=== PATIENT | female | born 1980 | race African-American/Black ===

== ENCOUNTER 2022-07-15 03:02 | Observation (INO) | payer OTHER, SELFPAY ==
--- NOTE | 2022-07-15 02:52 | PC.NURSE ---
called MD Deng to inform pt's meds at put in computer
[2022-07-15 02:53] VITALS: BMI 23.1
[2022-07-15 02:54] VITALS: BP 146/77; PULSE 52; RESP 16; TEMP 36.6; O2SAT 96
--- NOTE | 2022-07-15 02:58 | PM.IMHP ---
H&P: HPI History of Present Illness Date/Time: 07/15/22 02:58 Chief Complaint: abdominal pain Narrative: This is a 42-year-old female with past medical history significant for COPD/ emphysema, hypertension, tobacco dependence. patient comes as a transfer from another hospital due to abdominal pain for the last 3 days or so. Preliminary workup was significant for CT of abdomen and pelvis with cholecystitis. Patient denies any fevers, rigors, chills, has had nausea and vomiting. Pain is localized to the epigastric area and right upper quadrant Patient is been admitted for further evaluation management and treatment. Review of Systems Review of Systems: abdominal pain, nausea, vomiting, constipation. Constitutional: Constitutional: Denies chills, Denies fever(s), Denies malaise, Denies night sweats and Denies weakness Eyes: Eyes: Denies change in vision ENT: Denies dysphagia, Denies vertigo, Denies dizziness and Denies odynophagia Cardiovascular: Cardiovascular: Denies chest pain, Denies syncope, Denies irregular heart rhythm, Denies lightheadedness and Denies palpitations Respiratory: Respiratory: Denies chest congestion, Denies cough, Denies excessive phlegm production, Denies pain on inspiration, Denies dyspnea, Denies dyspnea on exertion and Denies wheezing Gastrointestinal: Gastrointestinal: Reports abdominal pain, Reports constipation, Reports nausea and Reports vomiting Genitourinary: Genitourinary: Denies dysuria Musculoskeletal: Musculoskeletal: Denies back pain, Denies joint swelling and Denies muscle weakness Integumentary/Breasts: Skin/Breast: Denies rash Neurologic: Denies vertigo, Denies dizziness, Denies focal weakness and Denies Sensory deficit (Neuro) Psychiatric: Psychiatric: Reports no additional psychiatric complaints and Reports as per HPI Endocrine: Endocrine: Denies cold intolerance, Denies flushing, Denies heat intolerance, Denies polyphagia, Denies polydipsia and Denies palpitations Hematologic/Lymphatic: Hematologic/Lymphatic: Reports no additional hematologic/lymphatic complaints and Reports as per HPI Allergic/Immunologic: Allergic/Immunologic: Reports no additional allergic/immunologic complaints and Reports as per HPI PMFSH Social History Social History Smoking status: Unknown if ever smoked Alcohol intake: current Drinks per week: 3 Substance use: never Spiritual care concerns: No Meds Home Medications and Allergies Home Medications Medication Instructions Recorded Confirmed Type acyclovir 800 mg tablet 800 mg PO DAILY 07/15/22 07/15/22 History albuterol sulfate 90 mcg/actuation 2 puff inhalation Q4H PRN 07/15/22 07/15/22 History aerosol inhaler Shortness Of Breath aspirin 81 mg chewable tablet 81 mg PO DAILY 07/15/22 07/15/22 History atorvastatin 40 mg tablet 40 mg PO DAILY 07/15/22 07/15/22 History budesonide-formoterol HFA 160 2 puff inhalation DAILY 07/15/22 07/15/22 History mcg-4.5 mcg/actuation aerosol inhaler (Symbicort) citalopram 40 mg tablet 40 mg PO DAILY 07/15/22 07/15/22 History lisinopril 20 mg tablet 20 mg PO DAILY 07/15/22 07/15/22 History metoprolol tartrate 50 mg tablet 50 mg PO DAILY 07/15/22 07/15/22 History nitroglycerin 0.4 mg sublingual 0.4 mg sublingual Q5-15M PRN Chest 07/15/22 07/15/22 History tablet Pain ticagrelor 90 mg tablet (Brilinta) 90 mg PO BID 07/15/22 07/15/22 History Allergies Allergy/AdvReac Type Severity Reaction Status Date / Time morphine Allergy Mild HIVES Verified 02/02/18 11:55 Vital Signs Vital Signs - 24 hr 07/15/22 02:54 Temperature 97.8 F Pulse Rate 52 L Respiratory Rate 16 Blood Pressure 146/77 H Pulse Oximetry 96 Exam Narrative: patient is laying in bed Const: General: comfortable, no acute distress, well developed, alert and awake Nutritional Appearance: average body habitus Orientation/consciousness: patient oriented x3 HENMT: Head: normal to inspection, normocephalic
[2022-07-15 03:05] VITALS: BMI 23.1
--- NOTE | 2022-07-15 03:06 | PC.NURSE ---
This patient, Rufina Cheung, was admitted to Medical Room 243-01. Patient/family oriented to hospital policies and general routines including ID bracelet, bed and alarms, visiting hours, pain management, procedures, bathroom and other care routines, personal items, smoking policy, room service/diet, and visiting hours. Information on how to activate the Rapid Response Team has been discussed. Patient/Family are encouraged to report perceived risks to care and to ask questions if they do not understand what they are told or what they should do. arrived at 247 am
--- NOTE | 2022-07-15 03:12 | PC.NURSE ---
pt transferred [facility], consult for cholecystitis MD Elliott, npo at this time.
[2022-07-15] MEDS: DEXTROSE 5%/0.45% SOD CHL 1,000 ML 100 ML IV CONT (03:19)
[2022-07-15 05:09] LABS: Basophils Absolute Auto 0.1 K/mm3 (0.0-0.1); Basophils Percent Auto 0.8 % (0.2-1.2); Eosinophils Absolute Auto 0.3 K/mm3 (0-0.3); Eosinophils Percent Auto 3.5 % (0-4.4); Hematocrit 28.1 % (37.0-47.0); Hemoglobin 7.7 g/dL (12.0-15.0); Immature Granulocyte Absolute 0.03 K/mm3 (0.00-0.031); Immature Granulocyte Percent A 0.4 % (0-0.5); Lymphocytes Absolute Auto 1.17 K/mm3 (0.9-3.2); Mean Corpuscular HGB Conc 27.4 g/dl (32-36); Mean Corpuscular Hemoglobin 20.1 pg (26-34); Mean Corpuscular Volume 73.2 fl (80-100); Monocytes Percent Auto 12.6 % (2.6-8.5); Neutrophils Absolute Auto 5.3 K/mm3 (1.3-6.7); Neutrophils Percent Auto 67.7 % (45.5-73.1); Nucleated Red Blood Cells Absolute Auto 0.1 K/mm3 (0.0-0.012); Nucleated Red Blood Cells Perc 1.2 % (0.0-0.2); Platelet Count Result 338 k/mm3 (150-375); Red Blood Count 3.84 M/mm3 (4.2-5.4); Red Cell Distribution Width 22.5 % (11.5-14.5); White Blood Count 7.8 K/mm3 (4.5-10.0)
[2022-07-15 05:15] LABS: Anion Gap 9 mmol/L (8-16); Blood Urea Nitrogen 20 mg/dL (7-17); Calcium 8.1 mg/dL (8.4-10.2); Carbon Dioxide 16 mmol/L (22-30); Chloride 111 mmol/L (98-107); Estimated CRCL calculation 56 ml/min; Estimated Glomerular Filt Rate > 60; Glucose 164 mg/dL (65-110); Potassium 4.1 mmol/L (3.4-5.0); Sodium 136 mmol/L (137-145)
[2022-07-15 05:35] LABS: Anisocytosis 1+ (NORMAL); Hypochromasia 2+ (NORMAL); Platelet Estimate Adequate (Adequate)
[2022-07-15 05:36] LABS: Ovalocytes 1+ (NORMAL)
--- NOTE | 2022-07-15 07:59 | PM.EVENT ---
Event Note Event Note Event Note: follow up rounding note pt w 08/15 pain, imaging found in chart from transferring hospital, no fever, no leukocytosis HIDA pending pt would like only IV Dilaudid for her pain
[2022-07-15 08:00] VITALS: BP 138/88; PULSE 56; RESP 16; TEMP 36.4; O2SAT 100
[2022-07-15] MEDS: FLUTICASONE/SALMETEROL 115-21 MCG INHALER 1 PUFF 2 PUFF INHALATION (08:23)
[2022-07-15] MEDS: MORPHINE SULFATE (*CRX) 2 MG/ML INJ IV PUSH (08:50)
[2022-07-15 08:54] LABS: Alanine Aminotransferase 36 U/L (6-35); Albumin Level 3.3 g/dL (3.5-5.1); Alkaline Phosphatase 68 U/L (38-126); Aspartate Amino Transferase 57 U/L (14-36); Bilirubin,Total 1.8 mg/dL (0.2-1.3); Lipase 283 U/L (23-300)
[2022-07-15] MEDS: diphenhydrAMINE HCl INJ 50 MG/ML VIAL IV PUSH (09:13)
--- NOTE | 2022-07-15 11:15 | PM.CNGS ---
Assessment and Plan Assessment and plan (1) Cholecystitis: Code(s): K81.9 - Cholecystitis, unspecified Status: Acute Assessment and Plan: exam benign, labs largely unremarkable, will start low fat diet, if shannon diet ok to dc home and f/u c me as outpt (2) Tobacco dependence: Code(s): F17.200 - Nicotine dependence, unspecified, uncomplicated Status: Acute Assessment and Plan: discussed cessation and pt not interested at this point (3) Hypertension: Code(s): I10 - Essential (primary) hypertension Status: Acute Assessment and Plan: stable, mgmt per primary team (4) COPD with emphysema: Code(s): J43.9 - Emphysema, unspecified Status: Acute Assessment and Plan: stable, mgmt per primary team History of Present Illness Consult details Consult date: 07/15/22 Reason for consult: abdominal pain Requesting physician: Feroz Deng MD Narrative: The patient is a 42-year-old female with a history of COPD presenting as a transfer from outside hospital with cholecystitis. The patient reports over the last few days she has had progressively worsening epigastric, right upper quadrant abdominal pain. The patient reports associated poor appetite, nausea, bloating. The patient reports similar symptoms in the past and reports a history of alcoholic pancreatitis. Workup, including CT, is reportedly significant for cholecystitis. The patient reports that she feels much better this morning. She reports all her symptoms are resolved and she would like to eat. Review of Systems Constitutional: Constitutional: Reports as per HPI, Reports anorexia, Denies chills, Denies fatigue, Denies fever(s), Denies increased appetite, Denies malaise, Reports poor appetite, Denies weakness, Denies weight gain and Denies weight loss Eyes: Eyes: Reports no additional eye complaints ENT: Reports system reviewed and no additional complaints, except as documented Cardiovascular: Cardiovascular: Reports no additional cardiovascular complaints Respiratory: Respiratory: Reports no additional respiratory complaints Gastrointestinal: Gastrointestinal: Reports as per HPI, Reports abdominal pain, Reports bloating, Reports GI cramping, Reports early satiety, Reports nausea and Denies vomiting Genitourinary: Genitourinary: Reports no additional female genitourinary complaints Musculoskeletal: Musculoskeletal: Reports no additional musculoskeletal complaints Integumentary/Breasts: Skin/Breast: Reports system reviewed and no additional complaints, except as docu Neurologic: Reports system reviewed and no additional complaints, except as documented Psychiatric: Psychiatric: Reports no additional psychiatric complaints Endocrine: Endocrine: Reports no additional endocrine complaints Hematologic/Lymphatic: Hematologic/Lymphatic: Reports no additional hematologic/lymphatic complaints Allergic/Immunologic: Allergic/Immunologic: Reports no additional allergic/immunologic complaints [facility] Social History Social History Smoking status: Current some day smoker Alcohol intake: current Drinks per week: 3 Substance use: never Spiritual care concerns: No Comments PMH - CAD, COPD, tobacco abuse, HTN PSH - denies any abd surgery FH - no known biliary dz Meds Home Medications and Allergies Home Medications Medication Instructions Recorded Confirmed Type acyclovir 800 mg tablet 800 mg PO DAILY 07/15/22 07/15/22 History albuterol sulfate 90 mcg/actuation 2 puff inhalation Q4H PRN 07/15/22 07/15/22 History aerosol inhaler Shortness Of Breath aspirin 81 mg chewable tablet 81 mg PO DAILY 07/15/22 07/15/22 History atorvastatin 40 mg tablet 40 mg PO DAILY 07/15/22 07/15/22 History budesonide-formoterol HFA 160 2 puff inhalation DAILY 07/15/22 07/15/22 History mcg-4.5 mcg/actuation aerosol inhaler (Symbicort) citalopram 40 mg
[2022-07-15 11:45] LABS: Pregnancy On Board Control Positive; Urine Pregnancy Test Negative
[2022-07-15 16:00] VITALS: BP 138/78; PULSE 68; RESP 16; TEMP 36.4; O2SAT 100
--- NOTE | 2022-07-15 16:09 | PM.DS ---
DS: Admitting Diagnosis Discharge Date 07/15/22 Admitting Diagnosis Code(s) ? K81.9 - Cholecystitis, unspecified ? Hypertension ? I10 - Essential (primary) hypertension ? ? J43.9 - Emphysema, unspecified ? F17.200 - Nicotine dependence, unspecified, uncomplicated ? DS: Discharge Diagnosis Discharge Diagnosis (1) Cholecystitis: Code(s): K81.9 - Cholecystitis, unspecified Status: Acute (2) Hypertension: Code(s): I10 - Essential (primary) hypertension Status: Acute (3) COPD with emphysema: Code(s): J43.9 - Emphysema, unspecified Status: Acute (4) Tobacco dependence: Code(s): F17.200 - Nicotine dependence, unspecified, uncomplicated Status: Acute DS: Summary Hospital Course Reason for hospitalization: Chief Complaint: ?abdominal pain Narrative: ?This is a 42-year-old female with past medical history significant for COPD/ emphysema, hypertension, tobacco dependence.? patient comes as a transfer from another hospital due to abdominal pain for the last 3 days or so.? Preliminary workup was significant for CT of abdomen and pelvis with cholecystitis.? Patient denies any fevers, rigors, chills, has had nausea and vomiting.? Pain is localized to the epigastric area and right upper quadrant? Patient is been admitted for further evaluation management and treatment. Hospital Course: (1) Cholecystitis: ?Code(s): K81.9 - Cholecystitis, unspecified ?Status:?Acute ?Assessment and Plan: ?admit to regular medical floor ?surgery consult ?NPO ?supportive care ?pain management ? Unasyn (2) Hypertension: ?Code(s): I10 - Essential (primary) hypertension ?Status:?Acute ?Assessment and Plan: ?continue to monitor (3) COPD with emphysema: ?Code(s): J43.9 - Emphysema, unspecified ?Status:?Acute ?Assessment and Plan: ? continue home meds ?continue to monitor ?stable (4) Tobacco dependence: ?Code(s): F17.200 - Nicotine dependence, unspecified, uncomplicated ?Status:?Acute ?Assessment and Plan: ?nicotine patch as needed Patient was admitted and subsequently rounded on by surgery. At the time with their examination she was asymptomatic with benign physical findings. Patient was hungry and requesting to eat. HIDA scan was canceled patient was fed low fat bland soft GI diet. She tolerated food well, and was subsequently discharged home in stable condition without any pain medications and with indications given to follow-up for outpatient HIDA scan at her convenience. Status at Discharge Functional status at discharge: independent ambulation Time Spent with Patient Time attestation: Total time spent providing and/or coordinating discharge services: Exam Narrative: GEN: NAD, AAOx23, cooperative requesting Dilaudid HEENT: NCAT, MMM, EOMI Neck: no JVD Abd: soft, NT, ND, bowel sounds normoactive Ext: moves all, no cyanosis, no clubbing, no edema Neuro: CN intact no focal deficits Psych: mood and affect congruent anxious DS: Data Data Completed and Pending Labs on day of discharge: Labs from last 24 hours 07/15/22 07/15/22 07/15/22 10:49 04:49 04:49 WBC RBC Hgb Hct MCV MCH MCHC RDW Plt Count MPV Immature Gran % (Auto) Neut % (Auto) Lymph % (Auto) [place] % (Auto) Eos % (Auto) Baso % (Auto) Lymph # (Auto) [place] # (Auto) Eos # (Auto) Baso # (Auto) Abs Immat Gran (auto) Absolute Neuts (auto) Absolute Nucleated RBC Nucleated RBC % Platelet Estimate Hypochromasia Anisocytosis Ovalocytes Sodium 136 L Potassium 4.1 Chloride 111 H Carbon Dioxide 16 L Anion Gap 9 BUN 20 H Creatinine 1.00 Estim Creat Clear Calc 56 Estimated GFR > 60 Glucose 164 H Calcium 8.1 L Total Bilirubin 1.8 H Direct Bilirubin 0.0 AST 57 H ALT 36 H Alkaline Phosphatase 68 Total P
--- NOTE | 2022-07-15 18:30 | PC.NURSE ---
Nurse called to patient's room after dinner. Patient now stating they are having right upper quadrant pain after dinner. Patient tolerated lunch earlier this afternoon. Discharge instructions were provided and patient agreed and signed discharge. This evening when patient stated they were having pain again, the nurse explained to patient that she can stay until the pain subsides and will notify the provider. The nurse notified the provider about the pain and the patient's hesitancy to discharge. Provider stated that at this time the patient is OK to discharge. Nurse spoke with patient about what the provider had stated and the patient is still uncomfortable. Plan is for patient to stay until pain subsides and oncoming nurse will notify hospitalist if pain is worsening.
--- NOTE | 2022-07-15 19:07 | PC.NURSE ---
Patient found walking toward the elevator by RN. RN asked patient if they were feeling better and they stated they were. Pt. is now comfortable for discharge.
== END 2022-07-15 19:08 | disposition home or self-care (01) ==
PROVIDERS: Surgery; Admitting Provider Internal Medicine; PCP Internal Medicine; Visit Provider Hospitalist
DX: K81.9 Cholecystitis, unspecified (principal); I10 Essential (primary) hypertension; J43.9 Emphysema, unspecified; I25.10 Atherosclerotic heart disease of native coronary artery without angina pectoris; F17.200 Nicotine dependence, unspecified, uncomplicated; Z79.51 Long term (current) use of inhaled steroids; Z79.82 Long term (current) use of aspirin; Z79.01 Long term (current) use of anticoagulants
CPT/HCPCS: 36415; 80048; 80076; 81025; 83690; 85025; 94640; 96374; 96375; A9270; G0378; G0379; J1200; J2270

== ENCOUNTER 2022-07-29 11:33 | Outpatient (CLI) | payer OTHER, SELFPAY ==
[2022-07-29 12:23] LABS: Hematocrit 28.4 % (37.0-47.0); Hemoglobin 8.2 g/dL (12.0-15.0); Immature Platelet Fraction Pct 4.9 % (0.9-11.2); Mean Corpuscular HGB Conc 28.9 g/dl (32-36); Mean Corpuscular Hemoglobin 19.4 pg (26-34); Mean Corpuscular Volume 67.1 fl (80-100); Mean Platelet Volume 10.7 fl (7.4-10.4); Platelet Count Result 325 k/mm3 (150-375); Red Blood Count 4.23 M/mm3 (4.2-5.4); Red Cell Distribution Width 21.5 % (11.5-14.5); White Blood Count 6.1 K/mm3 (4.5-10.0)
[2022-07-29 12:39] LABS: Alanine Aminotransferase 34 U/L (6-35); Albumin Level 3.7 g/dL (3.5-5.1); Alkaline Phosphatase 104 U/L (38-126); Anion Gap 11 mmol/L (8-16); Aspartate Amino Transferase 42 U/L (14-36); Bilirubin,Total 1.7 mg/dL (0.2-1.3); Blood Urea Nitrogen 17 mg/dL (7-17); Calcium 8.9 mg/dL (8.4-10.2); Carbon Dioxide 24 mmol/L (22-30); Chloride 103 mmol/L (98-107); Estimated Glomerular Filt Rate > 60; Glucose 117 mg/dL (65-110); Potassium 3.7 mmol/L (3.4-5.0); Sodium 138 mmol/L (137-145)
[2022-07-29 12:40] LABS: Eosinophils Absolute Manual 0.12 K/mm3 (0.02-0.5); Eosinophils Percent Manual 2 % (0-4); Hypochromasia 1+ (NORMAL); Lymphocytes Absolute Manual 1.58 K/mm3 (1.1-4.5); Monocytes Absolute Manual 0.24 K/mm3 (0.1-0.90); Monocytes Percent Manual 4 % (3-9); Neutrophils Percent Manual 68 % (46-73); Platelet Estimate Adequate (Adequate); Total Cells Counted 100
[2022-07-29 12:41] LABS: Anisocytosis 2+ (NORMAL); Target Cells 2+ (NORMAL)
[2022-07-29 12:42] LABS: Ovalocytes 2+ (NORMAL); Schistocytes None Seen (NORMAL); Tear Drop Cells 1+ (NORMAL)
== END 2022-07-29 11:34 | disposition home or self-care (01) ==
LOC: ANHLAB 11:35
PROVIDERS: Visit Provider Surgery
DX: K81.9 Cholecystitis, unspecified (principal)
CPT/HCPCS: 36415; 80053; 85025; 85055

== ENCOUNTER 2022-08-02 12:51 | Outpatient (CLI) | payer OTHER, SELFPAY ==
--- NOTE | 2022-08-02 13:28 | ECG_ITS ---
Measurements Intervals [place] Rate: 66 P: 68 LA: 141 QRS: -24 QRSD: 80 T: 156 QT: 409 QTc: 428 Interpretive Statements SINUS RHYTHM POSSIBLE LEFT ATRIAL ENLARGEMENT POOR R WAVE PROGRESSION, ANTERIOR LEADS BORDERLINE ST-T WAVE ABNORMALITY- INF/HIGH LAT LEADS BASELINE ARTIFACT- I, III, AVL BORDERLINE ECG NO PREVIOUS ECG AVAILABLE FOR COMPARISON Electronically Signed On 08-02-2022 13:44:13 CDT by Wilton Torrez D.O.
[2022-08-02 14:12] LABS: Amylase 59 U/L (30-110)
[2022-08-02 14:20] LABS: Hemoglobin 7.6 g/dL (12.0-15.0)
== END 2022-08-02 12:52 | disposition home or self-care (01) ==
LOC: ANHSURGERY 12:59
PROVIDERS: Anesthesiology; Visit Provider Surgery
DX: K80.10 Calculus of gallbladder with chronic cholecystitis without obstruction (principal); I10 Essential (primary) hypertension; D64.9 Anemia, unspecified; Z01.818 Encounter for other preprocedural examination; R94.31 Abnormal electrocardiogram [ECG] [EKG]
CPT/HCPCS: 36415; 82150; 85014; 85018; 86850; 86900; 86901; 93005

== ENCOUNTER 2022-08-04 01:58 | Day surgery (SDC) | payer OTHER, SELFPAY ==
[2022-08-01 09:59] VITALS: BMI 25.4
--- NOTE | 2022-08-01 10:08 | PC.NURSE ---
Report to the Outpatient Waiting Room, entrance under the green pavilion located off [facility], at time 7:00 on date 08/04/22. OR Time: 9:00. Time changes happen often and if your time is changed the preop area will call you the afternoon before. - You and your visitor will be asked to self-screen and do not enter if you have any COVID symptoms. - Only one visitor and NO children visitors are allowed at this time. - The patient visitor is requested to leave or wait in car when not with patient due to restrictions. - A mask is required within the hospital. Patients may have clear liquids (water, carbonated beverages, clear teas, apple juice) until 3 hours prior to surgery (6:00) with a maximum of 20 ounces. - No food from midnight until time of surgery Take the following medications with a SIP of water the morning of surgery: ACYCLOVIR, INHALERS, CITALOPRAM, METOPROLOL Medications to discontinue per physician: N/A Date to take last dose: N/A Please no make-up, nail russian, hairspray, perfume, deodorant, or body powder the day of surgery. No jewelry (including any body piercings) or valuables the day of surgery, leave them at home. Please take a shower or bath the night before, or the morning of, surgery with an antibacterial soap (HIBICLENS). Wear comfortable, loose fitting clothing. - Jewelry must be removed prior to entering the operating room. Rings and piercings that are not removed may be cut off. - The hospital will not accept responsibility for valuables. - Please leave all valuables, including medications, at home the day of surgery. If you are going home after surgery, a licensed wrecker driver must drive you home. - NO public transportation without another adult. - We recommend that an adult stay with you for 24 hours following discharge. - We also recommend that you do not drive, make important decision, drink alcoholic beverages, or take any drugs that were not prescribed by your health care provider for at least 24 hours after your discharge time. Follow any additional instructions given to you from your surgeon. If you or anyone in your household have experienced Covid symptoms in the past week, please notify your surgeon or the nurse liaison at the phone number below for possible testing. Telephone instructions given to PT - MICHAEL GEE and asked if any additional questions and then verbalized understanding. Patient advised to call surgeon office or pre surgery nurse liaison [phone] if any additional questions.
--- NOTE | 2022-08-03 12:55 | WPDANESEPPF ---
Anes - Initial Pre Proc Eval Procedure: Operation Date: 08/04/22 09:00 Proposed Procedures p Laparoscopic Cholecystectomy - Angie Elliott MD Date/Time: 08/03/22 12:55 Surgeon: Angie Elliott MD Pre Op Diagnosis: cholecystitis with stones Patient Data Age: 42 Gender: F Height: 1.63 m Weight: 67.13 kg Allergies Allergy/AdvReac Type Severity Reaction Status Date / Time morphine Allergy Mild HIVES Verified 08/01/22 09:57 Home Medications Medication Instructions Recorded Confirmed Type acyclovir 800 mg tablet 800 mg PO DAILY 07/15/22 08/01/22 History albuterol sulfate 90 mcg/actuation 2 puff inhalation Q4H PRN 07/15/22 08/01/22 History aerosol inhaler Shortness Of Breath aspirin 81 mg chewable tablet 81 mg PO DAILY 07/15/22 08/01/22 History atorvastatin 40 mg tablet 40 mg PO DAILY 07/15/22 08/01/22 History budesonide-formoterol HFA 160 2 puff inhalation DAILY 07/15/22 08/01/22 History mcg-4.5 mcg/actuation aerosol inhaler (Symbicort) citalopram 40 mg tablet 40 mg PO DAILY 07/15/22 08/01/22 History lisinopril 20 mg tablet 20 mg PO DAILY 07/15/22 08/01/22 History metoprolol tartrate 50 mg tablet 50 mg PO DAILY 07/15/22 08/01/22 History nitroglycerin 0.4 mg sublingual 0.4 mg sublingual Q5-15M PRN Chest 07/15/22 08/01/22 History tablet Pain Results Review: All pre-operative results and documents have been reviewed as part of the pre-operative evaluation. [facility] Past Medical History Medical History (Updated 08/03/22 @ 12:56 by Alen Duvall MD) Anxiety COPD (chronic obstructive pulmonary disease) COPD with emphysema Coronary artery disease Depression Hypertension Tobacco dependence Surgical History Surgical History (Updated 07/29/22 @ 11:02 by Jenny Duvall) H/O bilateral breast reduction surgery H/O heart artery stent Social History Social History Years smoked: 25 Smoking status: Current every day smoker Tobacco type: cigarettes Alcohol intake: never Drinks per week: 3 Substance use: current Substance use type: marijuana Spiritual care concerns: No Anes - Eval Final PreProcedure Day of Procedure 08/03/22 12:55 Patient weight: normal Heart: regular rate and rhythm Lungs: clear to auscultation and normal air movement Airway: Mallampati scale class II Neurological: alert and oriented Last oral intake: >/= 8 hours ASA classification: III Emergent: no Anesthetic plan: proceed Anesthesia type and monitoring: general ETT Results Review: All pre-operative results and documents have been reviewed as part of the pre-operative evaluation. Informed Consent: The patient's anesthetic plan and its attendant risks and benefits were discussed with the patient/family/POA. Questions were solicited and answers provided to the satisfaction of the patient/family/POA.
[2022-08-04 07:20] VITALS: BP 162/89; PULSE 66; RESP 18; TEMP 36.6; O2SAT 100; BMI 25.6
--- NOTE | 2022-08-04 07:22 | WPDHPUPDATE1 ---
History and Physical Update Update Date/Time: 08/04/22 07:22 History and Physical has been reviewed, including an updated exam of the patient. There are NO changes in the patient's condition. Risks, benefits, and alternatives have been discussed and questions answered. Patient agrees to proceed with procedure.
[2022-08-04] MEDS: ACETAMINOPHEN 500 MG TABLET 1000 MG PO (07:44)
--- NOTE | 2022-08-04 08:20 | SUR.PREOP ---
0750- Dr. Duvall in to see patient, Rufina and notified her that today's case would be cancelled due to cardiac history with stent placement and patient having not seen mapping supervisor in approximately five years time. Per Dr. Duvall patient needs to follow up with cardiology, PCP, and find a stitcher set up operator automatic. 0857- Dr. Elliott in to see patient prior to discharging home and encouraged follow up with PCP and mapping supervisor. Patient and mother's questions and concerns answered by Dr. Elliott. [id number]- This RN discharged patient home, reviewed discharge paperwork and discussed need for follow up with mapping supervisor, PCP, and finding stitcher set up operator automatic.
== END 2022-08-04 08:23 | disposition home or self-care (01) ==
PROVIDERS: Visit Provider Surgery
PROC: 0FT44ZZ Resection of Gallbladder, Percutaneous Endoscopic Approach (ICD-10-PCS; CPT 47562; principal; 2022-08-04 09:00)
DX: K80.10 Calculus of gallbladder with chronic cholecystitis without obstruction (principal); R06.02 Shortness of breath
CPT/HCPCS: 99212; A9270; G0463; J7030